=== PATIENT | female | born 1960 ===

== ENCOUNTER → 2022-10-05 08:58 | Outpatient (CLI) | payer BC, SELFPAY ==
--- NOTE | ~2022-10-05 | MR_ITS ---
EXAMINATION: MR knee RT wo con DATE: 10/05/2022 09:42 INDICATION: Right knee pain TECHNIQUE: Magnetic resonance imaging (MRI) of the right knee was performed without intravenous contr ast. Sequences included coronal PD-weighted FSE, coronal PD-weighted FS FSE, sagittal T2-weighted FS E, sagittal PD-weighted FS FSE and axial PD weighted fat saturated FSE. COMPARISON: None. FINDINGS: Medial compartment: Small radial tear involving the inner third of the posterior horn of the medial meniscus best appreci ated on coronal series 4 & 5, image 15 and axial series 3, image 17. Deep chondral ulceration/fissuri ng without degenerative subchondral changes at the anterior weightbearing medial femoral condyle. Lateral compartment: Lateral meniscus is normal. Articular cartilage is normal. Patellofemoral compartment: Deep chondral ulceration throughout the patella with underlying subarticular edema-like signal change at the cephalad aspect of the lateral facet. Small region of partial-thickness chondral fissuring at the inferior aspect of the medial trochlea. Ligaments and tendons: Anterior and posterior cruciate ligaments are normal. The medial collateral ligament and fibular silvana ateral ligament complex are normal. Mild tendinopathy and small enthesophytes at the patellar inserti ons of the distal quadriceps and proximal patellar tendons. Mild distal semimembranosus tendinopathy without discrete tear. The visualized medial and lateral hamstring tendons as well as the iliotibial band are otherwise normal. Fluid: Small right knee joint effusion. Moderate-sized multilobulated Maldonado's cyst No loose osteochondral rin dies identified. Osseous/other: Mild marrow edema underlying the medial tibial plateau without evident fracture line or overlying cho ndromalacia which could be represent stress reaction related to altered weight discrete resulting fro m the meniscal tear. No fracture or pathologic marrow replacing process. IMPRESSION: 1. Small radial tear involving the inner third of the posterior horn of the medial meniscus. 2. 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 3. Mild enthesopathy at the patellar insertions of the extensor mechanism. 4. Small right knee joint effusion and moderate-sized Maldonado's cyst. Reviewed, dictated and finalized at location B. IMPRESSION: 1. Small radial tear involving the inner third of the posterior horn of the med ial meniscus. 2. 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 3. Mild enthesopathy at the patellar insertions of the extensor mechanism. 4. Small right knee joint effusion and moderate-sized Maldonado's cyst.
== END ==
DX: M71.21 Synovial cyst of popliteal space [Baker], right knee (principal); M25.461 Effusion, right knee; M17.11 Unilateral primary osteoarthritis, right knee; S83.241A Other tear of medial meniscus, current injury, right knee, initial encounter; X58.XXXA Exposure to other specified factors, initial encounter
CPT/HCPCS: 73721